=== PATIENT | male | born 1980 | race Caucasian/White ===

== ENCOUNTER 2020-04-14 02:20 | Emergency (ER) | payer SELFPAY ==
[~2020-04-14] VITALS: Ht 185.4 cm; Wt 144.7 kg
[2020-04-14 02:29] VITALS: Ht 185.4 cm; Wt 144.7 kg
[2020-04-14 03:00] LABS: BASOPHIL % 0.2 % (0-2); PLATELET COUNT 360 x10^3mcL (130-400); RED CELL DISTRIBUTION WIDTH 13.1 % (11.5-14.5)
[2020-04-14 03:12] LABS: CALCIUM 8.3 mg/dL (8.5-10.1); CARBON DIOXIDE 25.9 mmol/L (21-32); CHLORIDE SERUM 101 mmol/L (98-107); CREATININE SERUM 0.8 mg/dL (0.7-1.3); GFR1 > 60 mL/min; GLUCOSE SERUM 174 mg/dL (74-106); POTASSIUM SERUM 3.5 mmol/L (3.5-5.1); SODIUM SERUM 136 mmol/L (136-145)
[2020-04-14 03:18] LABS: ALKALINE PHOSPHATASE 102 U/L (46-116); ALT/SGPT 60 U/L (16-63); AST/SGOT 20 U/L (15-37); BILIRUBIN TOTAL 0.42 mg/dL (0.20-1.00); LIPASE 90 IU/L (73-393); TOTAL PROTEIN, SERUM 7.6 g/dL (6.4-8.2)
[2020-04-14 04:11] LABS: microscopic required? NO
[2020-04-14 04:31] LABS: urine erythrocyte NEGATIVE (NEGATIVE)
[2020-04-14 04:47] VITALS: BP 160/106
== END 2020-04-14 04:47 | disposition home or self-care (01) ==
LOC: ED 02:20
PROVIDERS: Emergency Medicine
DX: K80.20 Calculus of gallbladder without cholecystitis without obstruction (principal)
CPT/HCPCS: J1885